=== PATIENT | male | born 1975 | race Caucasian/White ===

== ENCOUNTER 2019-11-28 04:57 | Observation (INO) ==
[2019-10-29 13:15] LABS: Basophils # (auto) 0.03 K/uL (0-0.2); Basophils % (auto) 0.5 %; Eosinophils # (auto) 0.07 K/uL (0-0.5); Eosinophils % (auto) 1.3 %; Hematocrit (blood only) 38.3 % (42-52); Hemoglobin 13.1 g/dL (14.0-18.0); Immature Granulocytes # (auto) 0.01 K/uL (0.00-0.02); Immature Granulocytes % (auto) 0.2 %; Lymphocytes % (auto) 30.7 %; Mean Corpuscular Hemoglobin 33.3 pg (25-34); Mean Corpuscular Hgb Conc 34.2 g/dL (32-36); Mean Corpuscular Volume 97.5 fL (80-100); Mean Platelet Volume 9.7 fL (7.4-10.4); Monocytes # (auto) 0.51 K/uL (0.11-0.59); Monocytes % (auto) 9.2 %; Neutrophils # (auto) 3.22 K/uL (1.4-6.5); Neutrophils % (auto) 58.1 %; Platelet Count 332 K/uL (130-400); RDW Coefficient of Variation 12.4 % (11.5-14.5); RDW Standard Deviation 44.5 fL (36.4-46.3); Red Blood Count 3.93 M/uL (4.7-6.1); White Blood Count 5.54 K/uL (4.8-10.8)
[2019-10-29 13:20] LABS: Appearance Urine Clear (Clear); Bilirubin Urine Negative (Negative); Blood Urine Negative (Negative); Color Urine Yellow; Glucose Urine UA Negative (Negative); Ketones Urine Negative (Negative); Leukocyte Esterase Urine Negative (Negative); Nitrite Urine Negative (Negative); Protein Urine Negative (Negative); Specific Gravity Urine 1.008 (1.000-1.030); Urobilinogen Urine Negative (Negative); pH Urine 7.5 (4.5-7.5)
[2019-10-29 13:26] LABS: Partial Thromboplastin Time 27.6 Seconds (21.0-31.0)
[2019-10-29 13:47] LABS: Alanine Aminotransferase 48 U/L (12-78); Albumin Level 4.3 gm/dl (3.4-5.0); Aspartate Aminotransferase 47 U/L (15-37); BUN Creatinine Ratio 10.2 (10-20); Bilirubin Direct < 0.1 mg/dl (0-0.2); Blood Urea Nitrogen 8 mg/dl (7-18); Calcium 9.9 mg/dl (8.5-10.1); Carbon Dioxide 26 mmol/L (21-32); Chloride 108 mmol/L (98-107); Est GFR (African American) 124.6; Est GFR (Non-African American) 107.5; Glucose 79 mg/dl (70-99); Sodium 140 mmol/L (136-145)
[2019-10-29 13:48] LABS: Alkaline Phosphatase 76 U/L (45-117); Bilirubin,Total 0.3 mg/dl (0.2-1); Total Protein 7.9 gm/dl (6.4-8.2)
[2019-10-30 09:23] LABS: INR 0.9 (0.9-1.1); Prothrombin Time 9.6 Seconds (9.0-12.0)
--- NOTE | 2019-10-31 15:14 | Anesthesiology Consultation ---
Date of Service October 31, 2019 Assessment & Plan (1) Encounter for pre-operative examination: Chart Review Chart Review: Acceptable Risk for Surgery and Patient NOT seen in Pre Admission Testing History Surgery Operation Date: 11/28/19 09:00 Proposed Procedures p Right Total Hip Arthroplasty - Caden Douglas MD Height/Weight Height: 5 ft 10 in Weight: 88.451 kg Allergies Allergy/AdvReac Type Severity Reaction Status Date / Time No Known Allergies Allergy Verified 10/31/19 12:41 Medications Home Medications Medication Instructions Recorded Confirmed Last Taken hyoscyamine sulfate 0.125 mg PO QID PRN 10/31/19 10/31/19 Unknown losartan 100 mg PO QAM 10/31/19 10/31/19 Unknown sulindac 200 mg PO BID PRN 10/31/19 10/31/19 Unknown Past Medical History Medical History Hypertension IBS (irritable bowel syndrome) Osteoarthritis Past Surgical History Surgical History Hx of arthroscopy of left knee X 3 Hx of wisdom tooth extraction Social History Smoking Status: Current some day smoker 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 Do You Dip or Chew Tobacco: Yes (1 CAN/ ADVISED) Hx Alcohol Use: Yes alcohol intake frequency: a few times a month Hx Substance Use: No substance use type: does not use Testing Laboratory Results 10/29/19 12:28 10/29/19 12:28 PT 9.6 Seconds (9.0-12.0) 10/29/19 12:28 INR 0.9 (0.9-1.1) 10/29/19 12:28 APTT 27.6 Seconds (21.0-31.0) 10/29/19 12:28 Urine Color Yellow 10/29/19 12:38 Urine Appearance Clear (Clear) 10/29/19 12:38 Urine pH 7.5 (4.5-7.5) 10/29/19 12:38 Ur Specific [place] 1.008 (1.000-1.030) 10/29/19 12:38 Urine Protein Negative (Negative) 10/29/19 12:38 Urine Glucose (UA) Negative (Negative) 10/29/19 12:38 Urine Ketones Negative (Negative) 10/29/19 12:38 Urine Nitrite Negative (Negative) 10/29/19 12:38 Ur Leukocyte Esterase Negative (Negative) 10/29/19 12:38 Blood Type O Positive 10/29/19 12:41 Antibody Screen NEGATIVE 10/29/19 12:41 Electrocardiogram Date: 10/29/19 Findings: + NSR @ (49)
--- NOTE | 2019-11-27 11:48 | History and Physical Report ---
DATE OF ADMISSION: 11/28/2019 CHIEF COMPLAINT: Right greater than left hip pain with end-stage degenerative joint disease. HISTORY OF PRESENT ILLNESS: A 44-year-old gentleman underwent history and physical preop examination for surgery with Dr. Douglas scheduled for 11/28/2019. The surgery is a right total hip arthroplasty. The patient has a longstanding history of bilateral hip/groin pain more or less the majority of his adult life. His symptoms have gotten worse. His symptoms affect all activities of daily living and functional mobility to a significant degree. He complains of groin pain and stiffness. He has tried and failed conservative treatment including anti-inflammatories, Tylenol, activity modification, physical therapy, and crutches. Dr. Douglas spoke to the patient about continued conservative treatment versus surgical intervention. The patient would like to proceed with surgery after hearing potential risks, complications, and outcomes. PAST MEDICAL HISTORY: Significant for high blood pressure, heartburn, and acid reflux. PAST SURGICAL HISTORY: Left knee surgery. Denies problems with anesthesia. MEDICATIONS: Losartan 100 mg 1 tablet by mouth every day, sulindac 200 mg 1 tablet by mouth twice a day as needed for arthritis/pain. ALLERGIES: No known drug allergies. SOCIAL HISTORY: The patient smokes 3/4 pack per day. He drinks approximately 6 beers per day. He denies use of recreational drugs. FAMILY HISTORY: Father with a history of a stroke and high cholesterol. REVIEW OF SYSTEMS: The patient admits to osteoarthritis, heartburn, acid reflux. He has shortness of breath with increased activity such as running short distances, walking uphill and climbing a flight of steps. He denies fevers, chills, sweats, signs and symptoms of infection, injury or trauma of new onset. Denies shortness of breath at rest. Denies chest pain. Denies lightheadedness, dizziness, bowel or bladder issues. PHYSICAL EXAMINATION: VITAL SIGNS: Height 178.5 cm, weight 88.4 kilograms. Temperature 36.5 degrees Celsius, blood pressure 136/82, heart rate 71, pulse ox on room air 97%. GENERAL: The patient is a 44-year-old male in no acute distress, alert and oriented x3 with normal mood and affect. He ambulates with an antalgic gait. HEENT: His head is normocephalic, atraumatic. External ears are intact. EYES: Pupils equal, round, reactive to light. Sclerae are normal. Extraocular movements intact. Nose: Nares are patent. Mouth: Dentition good. Mucosa moist. No erythema, edema or exudate. NECK: Supple, nontender. No JVD, no carotid bruits. Functional cervical spine motion. CARDIAC: Regular rate and rhythm. No murmurs, gallops or rubs. LUNGS: Clear to auscultation. No wheezes, rales, or rhonchi. LOWER EXTREMITIES: The patient is neurovascularly intact to his lower extremities with palpable dorsalis pedis and posterior tibial pulses. His calves are soft. He has negative Homans' and negative straight leg raise. He has 5/5 bilateral lower extremity strength, EHL, tibialis anterior and gastroc. Sensation is intact to light touch. Focused exam to bilateral hips reveals he has groin pain with bilateral hip internal and external rotation, right worse than left. Significant flexion contracture with Fahad testing of 25 degrees bilaterally, external rotation contracture of 20 degrees bilaterally. DIAGNOSTIC STUDIES: AP pelvis and ipsilateral of both hips performed on 10/29/2019, reviewed by Dr. Douglas personally showed advanced osteoarthritis of both hips with marked joint space narrowing, sclerosis, loose body formation, osteophytes, right worse than left. IMPRESSION: Bilateral hip advanced osteoarthritis, right worse than left. PLAN: Dr. Douglas discussed with the patient conservative versus surgical intervention and the patient would like to proceed with a right total hip arthroplasty. The patient is aware of potential risks, complications, and outcomes. He has failed conservative treatment. His symptoms directly interfere with all activities of daily living and functional mobility. The patient is aware that formal consent will be signed by him and Dr. Douglas on the morning of surgery, which is 11/28/2019. The patient will require a medical clearance. He will require preoperative testing. He was provided with CHG wipes and instructions on how to use. He is aware to hold the sulindac 7 days prior to the surgery. He was provided scripts for a cane as well as a walker, aware that insurance will only cover one. He will bring the walker with him to the hospital. He does have crutches at home. The patient is aware of the phone number to call the hospital the day before surgery for appropriate arrival time. I did discuss with him purchasing a hip kit as well as considering purchasing a raised toilet seat. He is aware he will have standard hip precautions postoperatively. The patient was also educated on smoking cessation and decreasing alcohol intake. I will mention both of these issues to Dr. Douglas's PA, Corona. The patient may benefit from a nicotine patch as well as Ativan while inpatient. Postoperatively, the patient will follow up with DE[facility] Cao on 12/10/2019 at 9:30 a.m. The patient will otherwise call the office in the meantime if he has any further problems, questions, or concerns.
[~2019-11-28 04:57] MED LIST: GENERAL ORDER PROBLEM SCH
[2019-11-28] MEDS ORDERED: CEFAZOLIN 2000MG 2,000 MG/15 ML SYR IV SCH (06:00)
[2019-11-28] MEDS ORDERED: ROPIVACAINE 0.5% HCL/PF 150 MG, BUPIVACAINE 0.5% MPF 30 ML, EPINEPHrine 0.15 MG, Ketoro... INFIL SCH (06:00)
[2019-11-28] MEDS ORDERED: ROPIVACAINE 0.5% HCL/PF 150 MG, BUPIVACAINE 0.5% MPF 30 ML, EPINEPHrine 30MG/30ML (OR U... INSTIL SCH (06:00)
[2019-11-28] MEDS ORDERED: LR 60ML/HR IV SCH (06:00)
[2019-11-28] MEDS ORDERED: TRANEXAMIC ACID 1,000 MG **IV Pre-op IV SCH (06:00)
[2019-11-28] MEDS ORDERED: LR 500ML BOLUS, THEN 15ML/HR IV SCH (06:00)
[2019-11-28] MEDS ORDERED: BUPIVACAINE 0.5 % 5 MG/1 ML PF 10ML VIAL ONE (06:26)
--- NOTE | 2019-11-28 06:28 | History & Physical Bridge Note ---
Date of Service November 28, 2019 History & Physical Bridge Note I have examined the patient, reviewed the History & Physical and in the interval since the performance of the History & Physical I have noted the following changes of clinical significance:consent obtained. no changes noted
[2019-11-28] MEDS ORDERED: ORTHO JOINT ANESTHETIC ONE (06:30)
[2019-11-28] MEDS ORDERED: fentaNYL citrate 100 MCG/2 ML VIAL ONE (06:37)
[2019-11-28] MEDS ORDERED: MIDAZOLAM HCL 1 MG/ML 2ML VIAL ONE (06:37)
[2019-11-28] MEDS ORDERED: ATROPINE SULFATE 0.1 MG/ML 10ML SYR IV PRN (06:54)
[2019-11-28] MEDS ORDERED: ePHEDrine sulfate 50 MG/ML AMP IV PRN (06:54)
[2019-11-28] MEDS ORDERED: LIDOCAINE HCL 2% 2 ML VIAL/AMP(20MG/ML) INFIL ONE (07:24)
[2019-11-28] MEDS ORDERED: PROPOFOL IV EMULSION 10 MG/ML 20 ML VIAL IV ONE (07:24)
--- NOTE | 2019-11-28 08:25 | Post Operative Brief Note ---
Immediate Post Op Note v1 Date of Surgery November 28, 2019 Pre & Post Diagnosis Operation Date: 11/28/19 07:00 Pre-Op Diagnosis: Right Hip Advanced Osteoarthritis Post-Op Diagnosis: Right Hip Advanced Osteoarthritis I identified the patient and participated in the time-out.: Yes Procedure Operation Date: 11/28/19 07:00 Actual Procedures p Right Total Hip Arthroplasty--Cemented(Right) - Caden Douglas MD Surgeon Caden Douglas MD Administrator Of Home Health [email or web address] Estimated Blood Loss 75 Findings Consistent with Post-Op Diagnosis
--- NOTE | 2019-11-28 08:37 | Operative Report ---
Post Operative Report Pre & Post Diagnosis Operation Date: 11/28/19 07:00 Pre-Op Diagnosis: Right Hip Advanced Osteoarthritis Post-Op Diagnosis: Right Hip Advanced Osteoarthritis I identified the patient and participated in the time-out.: Yes Procedure Operation Date: 11/28/19 07:00 Actual Procedures p Right Total Hip Arthroplasty--Cemented(Right) - Caden Douglas MD Surgeon KAMILLA Douglas MD Food General Manager [email or web address]/[email or web address] Estimated Blood Loss 75 Findings Consistent with Post-Op Diagnosis Specimens see operative report Drains none Complications none Disposition Accompanied Patient To Recovery: Yes Disposition: Recovery Room Indications This 44-year-old white male presented to the office with complaints of intractable right hip pain. He had tried conservative care measures without improvement. He elected to proceed with surgical intervention after being educated about potential risks and outcomes. Preoperative imaging was obtained. Description of Procedure Patient was administered a spinal anesthetic and then taken to the operating room where he was given sedation. He was prepped and draped in the usual st erile fashion. Please see Dr. Douglas's operative report for specifics of the procedure. I was present for the entire case from initial patient positioning through final wound closure. Assistance was provided in tissue retraction, hemostasis, trial implant placement, final implant placement, and final wound closure. Patient was taken to the recovery room in satisfactory condition. I attest to the content of the Intraoperative Record and any orders documented therein. Any exceptions are noted below.
[2019-11-28] MEDS ORDERED: LORazepam 1 MG TAB SL PRN (08:46)
--- NOTE | 2019-11-28 08:53 | Operative Report ---
Post Operative Report Pre & Post Diagnosis Operation Date: 11/28/19 07:00 Pre-Op Diagnosis: Right Hip Advanced Osteoarthritis Post-Op Diagnosis: Right Hip Advanced Osteoarthritis I identified the patient and participated in the time-out.: Yes Procedure Operation Date: 11/28/19 07:00 Actual Procedures p Right Total Hip Arthroplasty--Cemented(Right) - Caden Douglas MD Surgeon Caden Douglas MD Complaint Coordinator [email or web address]/[email or web address] Estimated Blood Loss 75 Findings Consistent with Post-Op Diagnosis Specimens R femoral head Complications none Disposition Accompanied Patient To Recovery: Yes Disposition: Recovery Room Description of Procedure Lateral decubitus position, standard prep and drape, time-out Right Total Hip Arthroplasty Please see Dr. Douglas's procedure notes for specific details I was present throughout the case, assisted for wound closure and transferred the patient to PACU in stable condition I attest to the content of the Intraoperative Record and any orders documented therein. Any exceptions are noted below.
--- NOTE | 2019-11-28 09:13 | Operative Report ---
DATE OF OPERATION: 11/28/2019 SURGEON: Caden Douglas MD AGRICULTURE SCIENTIST: Kit. SECOND AGRICULTURE SCIENTIST: Corona Preston PA-C. PREOPERATIVE DIAGNOSES: Severe osteoarthritis, right hip with dysplasia. POSTOPERATIVE DIAGNOSES: Severe osteoarthritis, right hip with dysplasia. OPERATION PERFORMED: Noncemented right total hip replacement. SUMMARY OF IMPLANTS: Size 54 acetabular shell sector cup, hole eliminator screw 6.5 x 25 x 1, poly liner 54 x 36 neutral, 4 high offset femoral noncemented stem, 36+12 ceramic head. ESTIMATED BLOOD LOSS: Roughly 75 mL. CRYSTALLOID: Per anesthesia. DESCRIPTION OF PROCEDURE: The patient was appropriately identified, site verified, consent verified. Antibiotics confirmed an as being given. Right lower extremity was prepped and draped in usual routine fashion. Posterior approach to the hip was then made. Sharp dissection carried to skin and blunt dissection down to the fascia. This was then incised under direct vision. A retractor was then placed. Care taken to protect the sciatic nerve. The short external rotators were then identified and released. The abductors were protected. The capsule was then teed, the hip dislocated and some marked deformity. A femoral neck and head were resected. Appropriate capsular release anteriorly performed. Retractors placed. Excellent exposure obtained. Labrum excised. Serial reaming carried up to a 54 and 54 cup impacted into appropriate anteversion and inclination with good compression fit. It was then secured with an additional screw for early fixation, 6.5 x 25 with excellent purchase. Trial liner was then seated and osteophytes were resected from the posterior and superior areas. Wound was then irrigated. The femur was then flexed and internally rotated. The proximal femur prepared with a final cigar and box examiner, canal finder, lateralizing rasp, and serial broaching up to a size 4. Multiple trial reductions were carried out with a 4 high offset +12 head giving appropriate leg lengths and superb stability. The hip was then dislocated. All remaining trial elements were removed. The wound irrigated with Betadine, Pulsavac, hole eliminator seated, permanent liner seated, permanent head and stem seated. The hip reduced. It was stable in all planes. Wound was irrigated one final time and closed with #2 Vicryl for the capsular layer and the short external rotators, #2 Vicryl for the fascia, 2-0 Vicryl subcutaneous layer and stainless steel clips for skin. Appropriate dressing applied. The patient transferred to recovery room in satisfactory condition having tolerated the procedure well. Pathology pending on bone. DVT prophylaxis per protocol. I attest to the content of the Intraoperative Record and any orders documented therein. Any exception s are noted below.
--- NOTE | 2019-11-28 09:30 | XRay Report ---
AP PELVIS History: Right total hip arthroplasty. Degenerative arthritis. Postop. FINDINGS: The patient is status post a right total hip arthroplasty. The hardware is intact. No fract ure or dislocation. Skin shelley are in place. Severe osteoarthritis within the left hip. IMPRESSION: Right total hip arthroplasty. No evidence for hardware complication ACT 112: Negative or not required by law. Electronically signed by: Nicho Rodríguez M.D. 11/28/2019 9:29 AM
--- NOTE | 2019-11-28 09:39 | Anesthesiology Progress Note ---
Date of Service November 28, 2019 Anesthesia Post Procedure Vital Signs Vital Signs: Temp Pulse Resp BP Pulse Ox 11/28/19 09:25 45 L 16 121/62 98 11/28/19 09:15 44 L 17 99/73 L 97 11/28/19 09:05 45 L 22 121/72 97 11/28/19 08:55 45 L 23 119/67 96 11/28/19 08:45 36.5 C 58 L 18 114/69 96 11/28/19 08:37 36.5 C 11/28/19 05:38 36.7 C 69 20 158/89 H 97 Pain Intensity Right Hip: Pain Intensity: 1 Transfer of Care Handoff Completed per policy Notes Mental Status: alert / awake / arousable and participated in evaluation Patient Amnestic to Procedure: Yes Nausea / Vomiting: adequately controlled Pain: adequately controlled Airway Patency, RR, SpO2: stable & adequate BP & HR: stable & adequate Hydration State: stable & adequate Neuraxial Anesthesia: was administered and sensory block is resolving Anesthetic Complications: no major complications apparent
[2019-11-28] MEDS ORDERED: NALOXONE HCL 0.4 MG/1 ML VIAL/CARP IV PRN (10:22)
[2019-11-28] MEDS ORDERED: TAMSULOSIN HCL 0.4 MG CAP PO PRN (10:22)
[2019-11-28] MEDS ORDERED: METOCLOPRAMIDE HCL INJ 5 MG/ML 2 ML VIAL IV PRN (10:22)
[2019-11-28] MEDS ORDERED: SODIUM CHLORIDE 0.9% 1000ML 1,000 ML IV SCH (10:22)
[2019-11-28] MEDS ORDERED: bisacodyL 10 MG SUPP PR PRN (10:22)
[2019-11-28] MEDS ORDERED: ONDANSETRON INJ 2 MG/ML 2 ML VIAL IV PRN (10:22)
[2019-11-28] MEDS ORDERED: DiphenhydrAMINE HCL 50 MG/ML VIAL IV PRN (10:22)
[2019-11-28] MEDS ORDERED: HYDROmorphone INJ 0.5 MG/0.5 ML SYR IV PRN (10:22)
[2019-11-28] MEDS ORDERED: ALUMINUM/MAGNESIUM SUSP 30 ML UDC PO PRN (10:22)
[2019-11-28] MEDS ORDERED: MAGNESIUM HYDROXIDE SUSP 30 ML UDC PO PRN (10:22)
[2019-11-28] MEDS ORDERED: OXYCODONE HCL IR 5 MG TAB (IMMEDIATE RELEASE) PO PRN (10:22)
[2019-11-28] MEDS ORDERED: HYOSCYAMINE SULFATE 0.125 MG TAB PO PRN (10:43)
[2019-11-28] MEDS: KETOROLAC 30 MG/ML VIAL IV SCH ×3 (11:47→23:30)
[2019-11-28] MEDS: MULTIVITAMIN TAB PO SCH (11:48)
[2019-11-28] MEDS: LOSARTAN POTASSIUM 50 MG TAB PO SCH (11:49)
[2019-11-28] MEDS: DOCUSATE SODIUM 100 MG CAP PO SCH ×2 (11:52→21:17)
[2019-11-28] MEDS: NICOTINE 14 MG/24 HR PATCH TD SCH (11:53)
[2019-11-28] MEDS: ACETAMINOPHEN 500 MG TAB PO SCH ×2 (13:20→21:18)
--- NOTE | 2019-11-28 13:53 | Discharge Summary ---
CHIEF COMPLAINT: Right hip pain. HISTORY OF PRESENT ILLNESS: The patient underwent elective right total hip replacement. Hospital course has been uneventful. He is doing well up on the floor. He is eating, drinking, voiding. He will be mobilized. His postop x-rays look excellent. PAST MEDICAL HISTORY: Remarkable for hypertension, heartburn, and acid reflux. Left knee surgery is remarkable. Denies problems with anesthesia. MEDICATIONS: Include losartan, sulindac. He will stop the sulindac at this point when he is on Coumadin. Coumadin to keep INR 1.8 to 2.2. ALLERGIES: None. SOCIAL HISTORY: Reveals that he smokes about 3/4 of a pack per day. Likes beer, has roughly 6 pack a day. He denies any use of recreational drugs. FAMILY HISTORY: Remarkable for history of stroke and cholesterol. REVIEW OF SYSTEMS: Noncontributory. ASSESSMENT: Status post right total hip replacement, doing well. Discharge to home tomorrow if the hospital course continues to be uneventful. Dressing change in a.m. Keep INR 1.8 to 2.2. Discharge on Coumadin dose per nomogram.
--- NOTE | 2019-11-28 13:53 | Progress Note ---
DATE: 11/28/2019 Post op check, doing well status post right total knee replacement. At this point in time, he is eating and drinking. He is voiding. Neurovascular check; femoral sciatic nerve is normal. Vital signs are stable. He is afebrile. Postop x-rays look excellent. ASSESSMENT: Doing well status post right total knee replacement. Mobilize. Use walker, weightbearing to tolerance. Coumadin per nomogram. It is okay to use the old Coumadin, INR level that was 31 days old. He does not have to have that repeated. We can give him the dose per nomogram. Will follow up in the a.m. for dressing change and discharge. AIDA
[2019-11-28] MEDS ORDERED: ORTHO WARFARIN NOMOGRAM SCH (14:00)
[2019-11-28] MEDS ORDERED: TRANEXAMIC ACID / 0.7% NACL 1,000 MG/100 ML BAG IV SCH (15:00)
[2019-11-28] MEDS ORDERED: WARFARIN SOD 5 MG TAB PO ONE (16:00)
[2019-11-28] MEDS: CEFAZOLIN 2000MG 2,000 MG/15 ML SYR IV SCH ×2 (16:07→23:30)
[2019-11-28] MEDS: FERROUS GLUCONATE 324 MG TAB PO SCH (17:46)
[2019-11-28] MEDS: ASCORBIC ACID 500 MG TAB PO SCH (17:46)
[2019-11-28] MEDS ORDERED: SENNA 8.6 MG TAB PO SCH (21:00)
[2019-11-29] MEDS: KETOROLAC 30 MG/ML VIAL IV SCH (06:05)
[2019-11-29] MEDS: ACETAMINOPHEN 500 MG TAB PO SCH (06:05)
--- NOTE | 2019-11-29 07:09 | Progress Note ---
DATE: 11/28/2019 SUBJECTIVE: Postop day #1 status post right total hip replacement. The patient was up, ambulating in the room with his walker. He was weightbearing as tolerated on his right lower extremity. He denies any real pain. He is very happy. OBJECTIVE: Vital signs are stable. He is afebrile. Neurovascular check femoral sciatic nerve is normal. Wound dressing clean, dry and intact. REVIEW OF SYSTEMS: Reveals no chest pain, shortness of breath, fever, chills, nausea, vomiting or headache. LABORATORY WORK: A.m. labs are pending. ASSESSMENT: Overall, doing well status post right total hip replacement. Discharge to home today after dressing change. Coumadin dose per nomogram. Follow up in 2 weeks for staple removal.
[2019-11-29] MEDS: FERROUS GLUCONATE 324 MG TAB PO SCH (07:30)
[2019-11-29] MEDS: ASCORBIC ACID 500 MG TAB PO SCH (07:30)
[2019-11-29] MEDS: DOCUSATE SODIUM 100 MG CAP PO SCH (07:31)
[2019-11-29] MEDS: LOSARTAN POTASSIUM 50 MG TAB PO SCH (07:31)
[2019-11-29] MEDS: NICOTINE 14 MG/24 HR PATCH TD SCH (07:31)
[2019-11-29] MEDS: MULTIVITAMIN TAB PO SCH (07:31)
[2019-11-29 07:36] LABS: Basophils # (auto) 0.02 K/uL (0-0.2); Basophils % (auto) 0.2 %; Eosinophils # (auto) 0.06 K/uL (0-0.5); Eosinophils % (auto) 0.7 %; Hematocrit (blood only) 32.3 % (42-52); Hemoglobin 10.9 g/dL (14.0-18.0); Immature Granulocytes # (auto) 0.02 K/uL (0.00-0.02); Immature Granulocytes % (auto) 0.2 %; Lymphocytes # (auto) 1.58 K/uL (1.2-3.4); Lymphocytes % (auto) 18.8 %; Mean Corpuscular Hgb Conc 33.7 g/dL (32-36); Mean Corpuscular Volume 97.9 fL (80-100); Mean Platelet Volume 9.4 fL (7.4-10.4); Monocytes % (auto) 11.9 %; Neutrophils # (auto) 5.71 K/uL (1.4-6.5); Neutrophils % (auto) 68.2 %; Platelet Count 279 K/uL (130-400); RDW Coefficient of Variation 12.5 % (11.5-14.5); RDW Standard Deviation 44.7 fL (36.4-46.3); White Blood Count 8.39 K/uL (4.8-10.8)
[2019-11-29 07:45] LABS: INR 1.1 (0.9-1.1); Prothrombin Time 10.8 Seconds (9.0-12.0)
[2019-11-29] MEDS ORDERED: dexAMETHasone 10 MG in SYRINGE 0 ML IV SCH (08:00)
[2019-11-29 08:06] LABS: BUN Creatinine Ratio 11.6 (10-20); Calcium 8.7 mg/dl (8.5-10.1); Creatinine Clr Calc Pharmacy 137.3 ml/min; Est GFR (African American) 129.3; Est GFR (Non-African American) 111.6; Potassium 3.5 mmol/L (3.5-5.1)
--- NOTE | 2019-11-29 09:15 | Orthopedic Progress Note ---
Date of Service November 29, 2019 Assessment & Plan (1) Status post total hip replacement, right: Dressing was changed this morning by me. New pressure dressing was applied. He understands that it is to be left in place through Tuesday. Then change as needed for soiling. PT/OT this morning prior to discharge. Anticipate discharge to home with outpatient services. Coumadin 4 mg daily and have his blood rechecked on Tuesday. Prescriptions for Percocet and Coumadin were sent to his pharmacy. Continue using the walker for ambulation. Admission and Anticipated Discharge Date Admission Date: November 28, 2019 Subjective Patient is seen in his room this morning. He has no complaints. States he feels well and is ready for discharge. Denies any chest pain, shortness of breath, nausea, vomiting, or abdominal pain. He states his hip pain is less now than it was preop. Review of Systems Review of Systems: Unchanged from preop yesterday. Physical Exam Physical Exam: General: Well-developed, well-nourished, middle-aged white male, in no acute distress. Laying on a bed. Alert and oriented. Skin: Warm and dry with good turgor. No rashes or lesions. Postop dressings are in place on the hip. Upon removal, expected postoperative edema and ecchymosis at the right buttock. No erythema. [place] are intact. Wound edges are well approximated. Minimal drainage on his dressings. The patient is not diaphoretic. Musculoskeletal: Patient has intact motor function to the ankle and toes. He is able to set his quad and is performing a straight leg raise today. Neurologic: Gross sensation is intact across the right leg by soft touch. Peripheral pulses are 2+. Results & Data ([facility]) Vital Signs (Past 12 Hours) Vital Signs Temp Pulse Resp BP BP Pulse Ox 11/29/19 07:04 36.6 C 64 18 142/83 H 98 11/29/19 03:03 135/80 11/29/19 03:02 36.9 C 57 L 14 166/86 H 97 11/28/19 23:31 36.9 C 70 14 159/91 H 98 Laboratory Results H&H obtained today is 10.9 and 32.3. INR this morning is 1.1.
[2019-11-29] MEDS ORDERED: WARFARIN SOD 3 MG TAB PO ONE (09:45)
--- NOTE | 2019-11-29 10:22 | Anesthesiology Progress Note ---
Date of Service November 29, 2019 Anesthesia Post Procedure Vital Signs Vital Signs: Temp Pulse Resp BP BP Pulse Ox 11/29/19 07:04 36.6 C 64 18 142/83 H 98 11/29/19 03:03 135/80 11/29/19 03:02 36.9 C 57 L 14 166/86 H 97 11/28/19 23:31 36.9 C 70 14 159/91 H 98 11/28/19 20:07 37.0 C 68 18 157/96 H 98 11/28/19 16:23 37.3 C 51 L 18 133/87 98 11/28/19 13:33 36.8 C 66 18 131/82 98 11/28/19 12:18 37.0 C 57 L 18 125/77 98 11/28/19 11:15 36.6 C 51 L 18 128/85 99 11/28/19 10:46 36.5 C 49 L 18 119/77 98 Pain Intensity Right Hip: Pain Intensity: 2 Notes Mental Status: alert / awake / arousable and participated in evaluation Patient Amnestic to Procedure: Yes Nausea / Vomiting: adequately controlled Pain: adequately controlled Airway Patency, RR, SpO2: stable & adequate BP & HR: stable & adequate Hydration State: stable & adequate Neuraxial Anesthesia: was administered and sensory block resolved Anesthetic Complications: no major complications apparent and Pt Satisfied with anesthetic care
[2019-11-29] MEDS ORDERED: NURSING LOW INTENSITY WARFARIN NOMOGRAM SCH (14:00)
== END 2019-11-29 11:07 | disposition home or self-care (01) ==
LOC: ASU 04:57 → 3E 08:44 → INTOOBSV 08:44